=== PATIENT | female | born 1980 | race African-American/Black ===

== ENCOUNTER → 2021-06-09 | Outpatient (CLI) | payer OTHER ==
--- NOTE | 2021-06-09 16:07 | REPMRS ---
Patient History The patient states she has not had a clinical breast exam in over a year. Patient is nulliparous. No known family history of cancer. Took hormonal contraceptives for 14 years. Covid vaccine 01/10/21 left arm. 01/31/21 left arm. Pt denied . Patient states no breast complaints today. Patient has signed MRS History Sheet. Digital Woman Screen Mammo: June 09, 2021 - Exam #: [id number] Bilateral CC and MLO view(s) were taken. Technologist: RT Dennis FINDINGS: The breast tissue is heterogeneously dense. This may lower the sensitivity of mammography. Screening. Digital screening (2D) mammography was performed bilaterally. Additionally, breast tomosynthesis (3D) mammography was perfomed bilaterally in the CC and MLO projections. Today's examination is the initial screening examination. By history, the patient has no complaints of a palpable breast abnormality or other significant breast complaints. The breasts are symmetric in size and shape. Dense heterogenous fibroglandular elements are seen bilaterally to such a degree that the sensitivity of the mammogram in detecting cancer is decreased. There are no masses. There is no internal architectural distortion. There are no suspicious microcalcific clusters. Skin thickening or nipple retraction is not present. IMPRESSION: BI-RADS Category 2- Benign Findings. There is no evidence of malignant alteration of the breasts. Followup examination recommended in one year. The Volpara volumetric breast density category is C, the breasts are heterogenously dense which may obscure small masses. This mammogram was read with the assistance of Tangler,an FDA approved computer aided detection system for mammography. The lifetime Tyrer-Cuzick score is 13.7 % Negative x-ray reports should not delay surgical consultation if a dominant or clinically suspicious mass is present. Not all breast cancers can be identified by mammography. Therefore, we recommend that you continue to perform regular breast self-examination and physical examination and then promptly contact your physician of any concerns or changes. Adenosis and dense breasts may obscure an underlying neoplasm. Assessment: BI-RADS/ACR category 2 mammogram. Benign Findings. Recommendation Routine screening mammogram of both breasts in 1 year. Electronically Signed By: Juvenal Jacobson DO 06/09/21 [id number]
== END ==
LOC: M WHC 15:07
PROVIDERS: ATTEND Technician, Other
DX: Z12.31 Encounter for screening mammogram for malignant neoplasm of breast (principal)

== ENCOUNTER → 2021-08-09 | Outpatient (POV) | payer OTHER ==
[~2021-08-09] VITALS: Ht 144.8 cm; Wt 57.2 kg
[2021-08-09 09:00] VITALS: BP 134/72
--- NOTE | 2021-08-11 08:27 | IRCOV ---
[facility] IR Consult Office Visit IR Consult Office Visit DATE: Aug 09, 2021 REASON FOR CONSULTATION/CHIEF COMPLAINT: Uterine fibroids. HISTORY OF PRESENT ILLNESS: 41-year-old female, reports she was diagnosed with fibroids in [place] 6 months ago. In the past 6 or 7 months, she has noticed increased heavy menstrual bleeding. Prior to that she would menstruate for 7 days, with a couple of heavy days in between. However, for the last several months she has been menstruating for 14 days, steady constant and heavy. She is doubling up on tampon and pads, both used together, due to extremely heavy flow. She is told she is anemic and she is on iron pills. She denies any blood transfusions. She denies pain with her periods. Patient has never been and is not currently planning to get . She does note urinary frequency and urgency with some leakage. She does not describe any dyspareunia or pain with defecation. She denies any prior abnormal Pap smears and states her last Pap smear was a year ago. She is not on any hormone therapy. ALLERGIES: Please see below. HOME MEDICATIONS: Please see below. PAST MEDICAL HISTORY: Hypertension PAST SURGICAL HISTORY: Skin cyst removed off the scalp FAMILY HISTORY: Sister suffered with fibroids. SOCIAL HISTORY: Non-smoker. Denies alcohol or drugs. REVIEW OF SYSTEMS: Otherwise negative. PHYSICAL EXAMINATION: VITAL SIGNS: Please see below. GENERAL APPEARANCE: Appears well. Comfortable at rest. HEENT: No scleral icterus. RESPIRATORY: Normal breathing at rest. CARDIOVASCULAR: Normal rate. ABDOMEN: Distended. Hard. Nontender. EXTREMITIES: No edema. NEUROLOGICAL: Alert and oriented. PSYCHIATRIC: Appropriate to circumstance. LABORATORY DATA: 05/13/2021 hemoglobin 8.2 hematocrit 26.9 MCV 71.9 platelets 326. Imaging: No images are available for me to view. Patient's report from her ultrasound performed 03/02/2021, reports "a large uterus with an 8.2 cm submucosal fibroid in the posterior uterine body/fundus." ASSESSMENT/PLAN: 41-year-old female with menorrhagia, associated with iron deficiency anemia, presents for uterine fibroid embolization. 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 We discussed the risks and benefits of the procedure and patient is willing to proceed. We will schedule the patient for uterine fibroid embolization. Patient elected to have the procedure done in October due to personal reasons. I have also ordered a pelvic and transvaginal ultrasound pre fibroid embolization. I spent 30 minutes reviewing patient's records and in consultation with the patient. Thank you for this referral. CC Dr. Diony joshi VS, I&O, 24H, Frantz Vital Signs/I&O Vital Signs Date Time Temp Pulse Resp B/P (MAP) Pulse Ox O2 Delivery O2 Flow Rate FiO2 08/09/21 09:00 98.4 65 20 134/72 (92) 100 Room Air ELINOR MARQUEZ MD Aug 11, 2021 08:27
== END ==
LOC: M IRPOV 08:58
PROVIDERS: ATTEND Radiology Diagnostic Radiology
DX: D25.9 Leiomyoma of uterus, unspecified (principal); D50.9 Iron deficiency anemia, unspecified; N92.1 Excessive and frequent menstruation with irregular cycle; R35.0 Frequency of micturition; R39.15 Urgency of urination

== ENCOUNTER → 2022-09-13 | Outpatient (CLI) | payer OTHER ==
[~2022-09-13] MED LIST: FERR29CA PO; IRON65TA2 PO; LOSA50TA28 PO; NAPR-885 PO; SERTRALINE
== END ==
LOC: M WHC 07:37
PROVIDERS: ATTEND Technician, Other
DX: Z12.31 Encounter for screening mammogram for malignant neoplasm of breast (principal)

== ENCOUNTER → 2022-12-14 | Outpatient (CLI) | payer OTHER ==
[~2022-12-14] MED LIST changes: +PROHANCE 279.3MG/ML 5ML VIAL ONE
== END ==
LOC: M PLAIMG 12:40
PROVIDERS: ATTEND Internal Medicine Endocrinology, Diabetes & Metabolism
DX: E22.1 Hyperprolactinemia (principal)
CPT/HCPCS: 70553; A9576

== ENCOUNTER → 2022-12-15 | Outpatient (REF) | payer OTHER ==
[~2022-12-15] MED LIST changes: -PROHANCE 279.3MG/ML 5ML VIAL ONE
[2022-12-15 16:47] LABS: APPEARANCE, URINE CLEAR (CLEAR); BACTERIA, URINE AUTO NEGATIVE (NEGATIVE); BILIRUBIN, URINE AUTO NEGATIVE (NEGATIVE); BLOOD, URINE BLOOD NEGATIVE (NEGATIVE); COLOR, URINE STRAW (YELLOW); GLUCOSE, URINE (UA) AUTO NEGATIVE (NEGATIVE); KETONE, URINE AUTO NEGATIVE (NEGATIVE); LEUKOCYTE ESTERASE, URINE AUTO NEGATIVE (NEGATIVE); NITRITE, URINE AUTO NEGATIVE (NEGATIVE); PROTEIN, URINE AUTO NEGATIVE (NEGATIVE); RBC, URINE AUTO 0 /HPF (0-3); SPECIFIC GRAVITY URINE AUTO 1.002 (1.002-1.035); SQUAMOUS EPITHELIAL CELL UR AU 0 /HPF (0-6); UROBILINOGEN, URINE AUTO 0.2 mg/dL (0.0-2.0); WBC, URINE AUTO 0 /HPF (0-3)
[2022-12-15 16:52] LABS: BASO % 0.4 % (0.0-1.0); EOS % 0.7 % (0.0-3.0); HEMATOCRIT 39.1 % (36.0-47.0); HEMOGLOBIN 12.4 g/dl (12.0-15.5); LYMPH # 1.4 10^3/uL (1.5-5.0); LYMPH % 30.6 % (24.0-44.0); MEAN CORPUSCULAR HEMOGLOBIN 27.7 pg (27.0-33.0); MEAN CORPUSCULAR HGB CONC 31.7 g/dl (32.0-36.5); MEAN CORPUSCULAR VOLUME 87.3 fl (80.0-96.0); MONO # 0.7 10^3/uL (0.0-0.8); MONO % 15.1 % (2.0-8.0); NEUTROPHILS # 2.4 10^3/uL (1.5-8.5); PLATELET COUNT, AUTOMATED 351 10^3/uL (150-450); RED BLOOD COUNT 4.48 10^6/uL (4.00-5.40); WHITE BLOOD COUNT 4.6 10^3/uL (4.0-10.0)
[2022-12-15 17:12] LABS: ERYTHROCYTE SEDIMENTATION RATE 21 mm/hr (0-20)
[2022-12-15 17:18] LABS: C REACTIVE PROTEIN QUANTITATIV 0.5 MG/DL (<1.0); CREATININE,RANDOM URINE < 13.0 MG/DL
[2022-12-15 17:19] LABS: COMPLEMENT C3 130.4 MG/DL (90.0-170.0); COMPLEMENT C4 44.3 MG/DL (12-36); MAGNESIUM LEVEL 1.9 MG/DL (1.8-2.4); PHOSPHORUS LEVEL 4.5 MG/DL (2.5-4.9)
[2022-12-15 17:22] LABS: THYROID STIMULATING HORMONE 0.826 uIU/ML (0.55-4.78); TOTAL 25(OH) VITAMIN D 32.5 NG/ML (20.0-100.0)
[2022-12-15 17:25] LABS: TOTAL PROTEIN,RANDOM URINE < 6.0 MG/DL (0.0-14.0)
== END ==
LOC: M SFHCRHEU 14:42
PROVIDERS: ATTEND Internal Medicine
DX: R76.8 Other specified abnormal immunological findings in serum (principal); M79.10 Myalgia, unspecified site; M25.50 Pain in unspecified joint
CPT/HCPCS: 81001; 82306; 82550; 82570; 82607; 83540; 83735; 84100; 84156; 84443; 85025; 85652; 85730; 86140; 86160; 86162; G0463

== ENCOUNTER → 2023-03-08 | Outpatient (CLI) | payer OTHER ==
[~2023-03-08] MED LIST changes: +ISOVUE-300 61% 100ML VIAL As Ordered ONE; +LIDOCAINE 1% MDV 20ML VIAL As Ordered ONE; +PROHANCE 279.3MG/ML 5ML VIAL As Ordered ONE
== END ==
LOC: M RAD 06:27
PROVIDERS: ATTEND Nurse Practitioner Family
DX: M67.813 Other specified disorders of tendon, right shoulder (principal); M25.511 Pain in right shoulder
CPT/HCPCS: 23350; 73223; 77002; A9576; Q9967

== ENCOUNTER → 2023-03-12 | Outpatient (CLI) | payer OTHER | LOC: M RAD 06:39 | PROVIDERS: ATTEND Nurse Practitioner Family | DX: M25.512 Pain in left shoulder (principal); S43.432A Superior glenoid labrum lesion of left shoulder, initial encounter | CPT/HCPCS: 23350; 73223; 77002; A9576; Q9967 ==